=== PATIENT | female | born 1985 | race Caucasian/White ===

== ENCOUNTER 2023-12-30 02:18 | Emergency (ER) | payer MEDICAID, SELFPAY ==
[2023-12-30 02:19] VITALS: BP 104/68; PULSE 89; RESP 16; TEMP 36.6; O2SAT 99; BMI 31.1
[2023-12-30] MEDS: ziprasidone 20 mg/mL SDV IM (03:15)
[2023-12-30] MEDS: water for injection-sterile 10 ML 1.19999999999999996 ML (03:17)
[2023-12-30 03:41] LABS: Add Urine Microscopic? NO; Charge for UA Resulting for Rev
[2023-12-30 03:43] LABS: Bilirubin Urine Neg (Negative); Blood Urine Neg (Negative); Glucose Urine UA Norm (Normal); Ketones Urine Negative (Negative); Leukocyte Esterase Urine Negative (Negative); Nitrate Urine Negative (Negative); Protein Urine Neg (Negative); Urine Appearance Clear (CLEAR); Urine Color Yellow (Yellow); Urobilinogen Urine Neg (Negative); pH Urine 7 (5-7)
[2023-12-30 03:47] LABS: HCG Qualitative Urine. Negative (Negative)
--- NOTE | 2023-12-30 04:17 | W.ED.PSYCHS ---
HPI - Psych General: Chief Complaint: Psychiatric Symptoms Stated Complaint: behavioral issues Time Seen by Provider: 12/30/23 02:58 Source: patient and EMS History of Present Illness: 38 year old female who admits to methamphetamine intoxication. She is very hard to follow in the room. she speaks of her boyfriend placing trackers inside her, conspiracies about the [place] government, etcetera. She fidgets on interview. She had to be given Geodon intramuscularly to decrease agitation so that a physical exam could be performed. She frankly denies a suicidal or homicidal ideation. She states that she would like to go home. She does note that her intoxication caused her to ?freak out , and so EMS was called. MD complaint: altered mental status Review of Systems Const: Denies: fever(s) ENMT: Denies: throat pain Card: Reports: chest pain and palpitations Resp: Denies: dyspnea, productive cough or non-productive cough GI: Denies: abdominal pain, nausea or vomiting Neuro: Reports: headache(s) Psych: Reports: anxiety, paranoia and difficulty concentrating [facility] ED Female Reproductive History: Date of last menstrual period: 12/28/23 Physical Exam Const: GENERAL APPEARANCE: cooperative and anxious; not ill appearing and not frail appearing HENMT: COMMON NORMALS: normocephalic, atraumatic and Normal external nose present HEAD & SCALP: normocephalic and atraumatic FACE & SINUS: normal facial exam and face symmetric NOSE: Normal external nose present Eye: COMMON NORMALS: Equal, round and reactive pupils present and EOMs intact bilaterally PUPIL: Yes Equal, round and reactive pupils present Neck/C-Spine: GENERAL: Yes trachea midline Chest: CHEST: Yes Symmetrical chest wall rise Resp: COMMON NORMALS: normal respiratory effort, No retractions, No use of accessory muscles and clear to auscultation bilaterally AUSCULTATION: clear to auscultation bilaterally Cardio: COMMON NORMALS: regular rate and regular rhythm RATE: regular rate RHYTHM: regular rhythm GI: COMMON NORMALS: Normal to inspection, nondistended, normoactive bowel sounds present Extremity: COMMON NORMALS: no pedal edema Neuro: PETRONA COMA SCALE: document GCS findings Petrona coma scale eye opening: Spontaneous Saxe coma scale verbal response: Confused Petrona coma scale motor response: Obey commands Petrona coma scale total score: 14 SPEECH: abnormal speech Details: slurred (minimally) SENSORY EXAM: Yes extremities (intact) Psych: COMMON NORMALS: speech normal SPEECH: Yes normal speech Skin: COMMON NORMALS: no rashes or lesions noted GENERAL SKIN EXAM: no rashes or lesions noted Course Vital Signs: Vital signs: Vital Signs Temperature 97.8 F 12/30/23 02:19 Pulse Rate 74 12/30/23 06:34 Respiratory Rate 16 12/30/23 06:34 Blood Pressure 104/68 12/30/23 02:19 Pulse Oximetry 100 12/30/23 06:34 Oxygen Delivery Me thod Room Air 12/30/23 02:19 MDM - Psych Medical Decision Making The patient was given intramuscular Geodon for agitation and accelerated delirium basically on arrival to the emergency department. This seemed to help her agitation, fidgeting, and flight of ideas. She calmed down quite a bit. A couple of hours later, she complained briefly of chest discomfort comment appeared quite anxious. Her EKG was completely normal. She was given Zyprexa come again with significant improvement, and resolution of her chest discomfort. You're on drug screen is positive for amphetamines. Clinically, there is no reason to believe her symptoms are coming from other sources. She is not suicidal or homicidal. She'll be allowed to discharge to the custody of a responsible sober adult. Lab Data Laboratory Results HCG, Qual Negative (Negative) 12/30/23 03:36 Urine Color Yellow (Yellow) 12/30/23 03:36 Urine Appearance Clear (CLEAR) 12/30/23 03:36 Urine pH 7 (5-7) 12/30/23 03:36 Ur Specific [place] 1.000 (1.005-1.030) L 12/30/23 03:36 Urine Protein Neg (Negative) 12/30/23 03:36 Urine Glucose (UA) Norm (Normal) 12/30/23 03:36 Urine Ketones Negative (Negative) 12/30/23 03:36 Urine Blood Neg (Negative) 12/30/23 03:36 Urine Nitrate Negative (Negative) 12/30/23 03:36 Urine Bilirubin Neg (Negative) 12/30/23 03:36 Urine Urobilinogen Neg mg/dL (Negative) 12/30/23 03:36 Ur Leukocyte Esterase Negative (Negative) 12/30/23 03:36 Urine Opiates Screen Negative ng/mL (Negative) 12/30/23 03:36 Ur Barbiturates Screen Negative ng/mL (Negative) 12/30/23 03:36 Ur Phencyclidine Scrn Negative ng/mL (Negative) 12/30/23 03:36 Ur Amphetamines Screen Positive ng/mL (Negative) H 12/30/23 03:36 U Benzodiazepines Scrn Negative ng/mL (Negative) 12/30/23 03:36 Urine Cocaine Screen Negative ng/mL (Negative) 12/30/23 03:36 U Marijuana (THC) Screen Negative ng/mL (Negative) 12/30/23 03:36 No radiology studies performed this visit Discharge Plan Discharge Patient Disposition: Home Clinical Impression: Methamphetamine intoxication Condition: Stable Discharge Orders: Discharge ED (Routine); Ordered 12/30/23 Ordered By: Bienvenido Villalobos Patient Instructions: Acute Delirium (ED), Methamphetamine Use Disorder (ED), Opioid Safety, Pain Management Activity Restrictions/Additional Instructions: Do not use illicit substances. Rest, hydrate. Return for worsening symptoms. 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
[2023-12-30 04:21] LABS: Amphetamines Screen Urine Positive (Negative); Barbiturates Screen Urine Negative (Negative); Benzodiazepines Screen Urine Negative (Negative); Cocaine Screen Urine Negative (Negative); Opiate Screen Urine Negative (Negative); PCP Screen Urine Negative (Negative); THC Screen Urine Negative (Negative)
[2023-12-30] MEDS: OLANZapine 10 mg ODT 20 MG PO (05:42)
[2023-12-30 06:34] VITALS: PULSE 74; RESP 16; O2SAT 100
== END 2023-12-30 06:40 | disposition home or self-care (01) ==
PROVIDERS: Emergency Provider Emergency Medicine
DX: F15.129 Other stimulant abuse with intoxication, unspecified (principal)
CPT/HCPCS: 80306; 81003; 81025; 96372; 99284; J3486

== ENCOUNTER 2025-01-28 10:02 | Outpatient (CLI) | payer MEDICAID, SELFPAY ==
--- NOTE | 2025-01-28 10:00 | MM_ITS ---
WS: [id number] VIEWS: MLO and CC views both breasts. 3D digital tomosynthesis is also included in this exam. No priors. Findings: The breasts are almost entirely fatty. No mass, tumor calcification or architectural distortion in either breast. MM/MM scr BI tomosynthesis [id number] Impression: BI-RADS: 1 - Negative. FOLLOW-UP: 1 Year Follow-up This mammogram was also analyzed by the Computer Aided Detection System R2 Imag e Assessment Nurse.
== END 2025-01-28 10:03 | disposition home or self-care (01) ==
PROVIDERS: PCP Nurse Practitioner Family; Visit Provider Nurse Practitioner Family
DX: Z12.31 Encounter for screening mammogram for malignant neoplasm of breast (principal)
CPT/HCPCS: 77063; 77067